=== PATIENT | female | born 1950 | race Caucasian/White ===

== ENCOUNTER 2016-04-12 08:06 | Emergency (ER) | payer BC ==
[2016-04-12 08:29] VITALS: BP 129/76
[2016-04-12] MEDS ORDERED: FAMOTIDINE 10 MG/ML VIAL IV ONE ×2 (08:46→09:09)
[2016-04-12] MEDS ORDERED: NORMAL SALINE 1,000 ML IV ONE (08:46)
[2016-04-12] MEDS ORDERED: ONDANSETRON HCL/PF 2 MG/ML VIAL IV ONE (08:46)
[2016-04-12] MEDS ORDERED: ONDANSETRON HCL/PF 2 MG/ML VIAL ONE (09:08)
--- OUTSIDE RECORDS SUMMARY | 2016-04-12 09:25 | XMS REPORT | Continuity of Care Document ---
:1950 Author Organization [facility] ([facility]) Address [address] [place] [address] Phone [phone] Care Team Providers Name Role Phone Unavailable Primary Care Provider Unavailable Source Comments This disclosure is being made pursuant to the Care Everywhere program, applicable federal and state laws, and may not contain all informaitonavailable regarding this patient.[facility] ([facility]) Active Allergies and Adverse Reactions Not on File Current Medications Not on file Active Problems Not on file Social History Tobacco Use Types Packs/Day Years Used Date Never Assessed Plan of Care Health Maintenance Due Date Last Done Comments HCV Screening 1950 Hepatitis B Vaccine (1 of 3 - Primary Series) 1950 Tdap Vaccine 07/08/1962 Lipid Disorder Screening 07/08/1969 Td Vaccine 07/08/1969 Cervical Cancer Screening 07/08/1981 Mammogram 1991 Colonoscopy 07/08/2001 Zoster Vaccine 2011 Influenza Vaccine: Seasonal (#1) 09/09/2015 Results from Last 3 Months Not on file
[2016-04-12 09:35] LABS: Hematocrit 39.8 % (37.0-47.0); Hemoglobin 13.5 gm/dL (12.5-16.0); Mean Cell Volume 88.2 fl (78-100); Mean Corpuscular Hemoglobin 29.9 pg (27-31); Mean Corpuscular Hgb Conc 33.9 g/dl (32-36); Mean Platelet Volume 8.4 fl (6.0-9.5); Neutrophil # 6.1 K/mm3 (1.3-6.0); Neutrophil % 67.6 % (42-75.0); Platelet Count 309 K/mm3 (150-450); Red Blood Count 4.51 M/mm3 (4.2-5.4); Red Cell Distribution Width 12.6 % (11.5-14.0)
[2016-04-12 09:42] LABS: Prothrombin Time (Patient) 10.5 Seconds (9.4-11.4)
[2016-04-12 09:45] LABS: INR 1.01 INR (0.90-1.10); Partial Thrombolplastin Time 24.9 Seconds (24-32)
[2016-04-12 09:46] LABS: Albumin * 4.2 gm/dl (3.4-5.0); Anion Gap 12.6 mmol/L (6.8-13.8); BUN/Creatinine Ratio 13.8 (9.0-21.6); Bilirubin, Total 1.4 mg/dL (0.0-1.1); Ca. Corrected For Albumin 9.2 mg/dL (8.4-10.2); Calcium * 9.7 mg/dL (7.9-10.9); Carbon Dioxide 28.4 mmol/L (24-32.6); Total Protein 7.9 gm/dL (6.2-8.2)
[2016-04-12] MEDS ORDERED: metroNIDAZOLE 250 MG TABLET PO ONE (11:02)
[2016-04-12] MEDS ORDERED: LEVOFLOXACIN 500 MG TABLET PO ONE (11:02)
[2016-04-12] MEDS ORDERED: metroNIDAZOLE 250 MG TABLET ONE (11:04)
[2016-04-12] MEDS ORDERED: LEVOFLOXACIN 250 MG TABLET ONE (11:04)
--- NOTE | 2016-04-12 11:14 | ERNOTE ---
GI Bleeding/Rectal Pain ER Date of Service: 04/12/16 Presenting Symptoms: rectal bleeding Time Seen by Provider: 04/12/16 08:40 Source: patient Exam Limitations: no limitations Allergies/Adverse Reactions: Allergies amoxicillin [Amoxicillin] Allergy (Intermediate, Verified 04/12/16 08:29) Hives ampicillin Allergy (Intermediate, Verified 04/12/16 08:29) Hives penicillin V potassium [From Pen-Vee K] Allergy (Intermediate, Verified 08:29) Hives Home Medications: HOME MEDICATIONS Ascorbic Acid [Vitamin C] 100 mg PO DAILY 04/20/13 [Last Taken Unknown] Aspirin [[place] Aspirin] 81 mg PO DAILY 04/20/13 [Last Taken Unknown] Cholecalciferol (Vitamin D3) [Vitamin D3] 400 unit PO DAILY 04/20/13 [Last Taken Unknown] Multivitamin [Multi Vitamin Daily] 1 each PO DAILY 04/20/13 [Last Taken Unknown] Ciprofloxacin HCl [Cipro] 500 mg PO BID #14 tab 04/12/16 [Last Taken Unknown] Ondansetron [Zofran Odt] 4 mg PO Q8H PRN #9 tab 04/12/16 [Last Taken Unknown] metroNIDAZOLE [Flagyl] 500 mg PO Q8H #21 tablet 04/12/16 [Last Taken Unknown] Narrative: Patient comes due to abdominal distention, diarrhea, and GI Bleeding. Patient used medication to stop diarrhea. Patient with no fever and no vomiting. Timing: intermittent Quality/Severity: Present: mild, dullness Nausea/Vomiting: Present: none Abdominal Pain: Present: LLQ Rectal Bleeding: Present: blood mixed with stool Associated Symptoms: Reports: dizziness, diarrhea. Denies: maroon stools, black stools, tarry stools, constipation/hard stools, back pain, fainting, light headedness, rectal pain Prior Treament: Denies: recently seen Review of Systems - Review of Systems Constitutional: Present: malaise. Absent: fever, chills EYE: Present: no symptoms reported ENT: Present: no symptoms reported Respiratory: Present: no symptoms reported Cardiology: Present: no symptoms reported Gastrointestinal/Abdominal: Present: diarrhea - with blood, abdominal pain - LLQ area. Absent: nausea, vomiting Genitourinary: Present: no symptoms reported Musculoskeletal: Present: no symptoms reported Skin: Present: no symptoms reported Neurological: Present: no symptoms reported Endocrine: Present: no symptoms reported Hematologic/Lymphatic: Present: no symptoms reported Psych: Present: no symptoms reported All Other Systems: All systems neg except as marked - Patient's Past Medical History Patient History - Medical: No pertinent hx Patient History - Cardiac/Respiratory: No pertinent hx Patient History - Cancer: No Hx of Cancer Patient History - Surgical Procedures: Other, Hernia Repair Patient History - Other: None - Social History Living Situations: home Psych History: No pertinent hx Alcohol Use: none Physical Exam - Physical Exam General Appearance: Present: wd/wn, alert, no apparent distress Ears, Nose, Throat: Present: normal ENT inspection, dry mucous membranes Neck: Present: normal inspection, nontender Respiratory: Present: no respiratory distress, normal breath sounds, no accessory muscle use, chest nontender Cardiovascular/Chest: Present: regular rate, rhythm, no murmur, normal peripheral pulses Gastrointestinal/Abdominal: Present: tenderness - LLQ area, distended - mild, guarding. Absent: rebound, mass Rectal Exam: Present: other - Patient had blood on stools Back Exam: Present: normal inspection, normal range of motion, no vertebral tenderness. Absent: CVA tenderness (R), CVA tenderness (L), vertebral tenderness Extremity Exam: Present: normal inspection, normal range of motion, no edema Neurological Exam: Present: alert, oriented, normal mood/affect, no motor/ sensory deficits Skin Exam: Present: normal color, warm/dry Lymphatic Exam: Present: no adenopathy ED Progress - Date and Time Seen: Date and Time: 04/12/16 11:07 Patient was found with a colitis on CT. Patient at the moment wants to go home and get PO Tx. Patient and agreed to return if fever, worsening, or failure to improve. Patient at the moment has a non surgical abdomen. - Results and Orders Patient's Lab Results:: I have reviewed the patient's lab results. Results and Orders: CBC: Normal CMP: Normal Stools: Patient could not produce sample INR: Normal - Vital Signs Patient's Vital Signs:: I have reviewed the patient's vital signs. Vital Signs: Vital Signs 04/12/16 08:22 Temperature 36.7 C Pulse Rate 79 Respiratory 12 Rate Blood Pressure 129/76 O2 Sat by Pulse 100 Oximetry - CT/Ultrasound CT/Ultrasound Narrative: CT Abd-Pelvis: 10cm colitis reported. Radiologist Report was read. - Progress/Reassessment Chief Complaint: GI Bleed Progress:: Improved - Transfer of Care Expected Disposition: Discharge Departure Clinical Impression: Colitis Diarrhea Qualifiers: Diarrhea type: infectious Qualified Code(s): A09 - Infectious gastroenteritis and colitis, unspecified GI (gastrointestinal bleed) Qualifiers: GI bleed type/associated pathology: unspecified gastrointestinal hemorrhage type Qualified Code(s): K92.2 - Gastrointestinal hemorrhage, unspecified - Departure Disposition: Home self-care Condition: Stable Instructions: Food Choices to Help Relieve Diarrhea, Adult, Rehydration, Adult , Gastrointestinal Bleeding, [id number], Colitis Referrals: Marta Camilo MD [Primary Care Provider] - Prescriptions: Ciprofloxacin HCl [Cipro] 500 mg PO BID #14 tab Ondansetron [Zofran Odt] 4 mg PO Q8H PRN #9 tab PRN Reason: Nausea metroNIDAZOLE [Flagyl] 500 mg PO Q8H #21 tablet
[2016-04-12 11:33] LABS: Urine Appearance Clear; Urine Bilirubin Negative (NEGATIVE); Urine Color Yellow
[2016-04-12 11:34] LABS: Urine Blood Negative /ul (NEGATIVE); Urine Nitrite Negative (NEGATIVE); Urine Protein Negative (NEGATIVE); Urine Urobilinogen Normal (NORMAL); Urine pH 7.5 pH (5.0-7.0)
[2016-04-12 11:35] LABS: Urine Bacteria None Seen; Urine Ketone 15 mg/dL (NEGATIVE); Urine RBC None Seen /hpf (0-5); Urine WBC None Seen /hpf (0-5)
== END 2016-04-12 11:23 | disposition home or self-care (01) ==
LOC: ER 08:06
DX: A09 Infectious gastroenteritis and colitis, unspecified (principal); K92.2 Gastrointestinal hemorrhage, unspecified